=== PATIENT | female | born 1995 | race Caucasian/White ===

== ENCOUNTER 2017-01-24 00:02 | Emergency (ER) | payer OTHER ==
[2017-01-24 00:58] LABS: PH,URINE 6.5 (5.0-8.0); SPECIFIC GRAVITY 1.015 (1.001-1.030); URINE BILIRUBIN NEGATIVE (NEGATIVE); URINE BLOOD NEGATIVE (NEGATIVE); URINE GLUCOSE (UA) NEGATIVE (NEGATIVE); URINE LEUKOCYTE ESTERASE NEGATIVE (NEGATIVE); URINE NITRITE NEGATIVE (NEGATIVE); URINE PROTEIN NEGATIVE (NEGATIVE); URINE UROBILINOGEN NORMAL (0-1 mg/dl)
[2017-01-24 00:59] LABS: URINE APPEARANCE CLEAR; URINE COLOR YELLOW
[2017-01-24 01:00] LABS: HCG,QUALITATIVE URINE NEGATIVE
[2017-01-24 02:53] LABS: ABSOLUTE NEUTROPHIL COUNT 3.2 K/mm3 (1.8-7.7); BASO % 0.3 % (0.2-1.0); EOS # 0.1 (0.0-0.5); EOS % 1.6 % (0.9-2.9); IMM NEUT% 0.1 % (0-1); LYMPH # 2.9 (1.0-4.8); LYMPH % 41.6 % (15-45); MEAN CELL VOLUME 88.9 fl (81.0-99.0); MEAN CORPUSCULAR HEMOGLOBIN 28.2 pg (27.0-31.0); MEAN CORPUSCULAR HGB CONC 31.7 g/dl (33.0-37.0); MEAN PLATELET VOLUME 10.2 fl (7.4-10.4); MONO # 0.7 (0.0-0.8); MONO % 9.4 % (4-12); PLATELET COUNT 228 K/mm3 (130-400)
[2017-01-24 03:03] LABS: ALB/GLOB RATIO 1.4 (>1.0); ALBUMIN 4.4 gm/dL (3.5-5.7); CALCIUM 9.3 mg/dL (8.6-10.3)
[2017-01-25 14:10] LABS: CHLAMYDIA BD Negative (Negative); N.GONORRHOEAE BD Negative (Negative); SOURCE Urine (())
== END 2017-01-24 03:17 | disposition home or self-care (01) ==
LOC: ED 00:02
DX: R10.13 Epigastric pain (principal); K92.0 Hematemesis; N93.9 Abnormal uterine and vaginal bleeding, unspecified